=== PATIENT | male | born 1995 | race Caucasian/White ===

== ENCOUNTER 2016-09-18 13:39 | Emergency (ER) | payer OTHER ==
[2016-09-18 14:59] VITALS: BP 142/64; PULSE 72; TEMP 98.3; BMI 33.5
--- NOTE | 2016-09-18 15:04 | EDPRACDOC ---
- General Information Chief Complaint: Shoulder Pain Stated Complaint: SHOULER PAIN Time Seen by Provider: 09/18/16 14:59 Home Medications: Home Medications Cyclobenzaprine HCl [Flexeril] 10 mg PO TID PRN #20 tablet 09/18/16 Ketoprofen 50 mg PO BID PRN #20 capsule 09/18/16 Allergies/Adverse Reactions: Allergies Allergy/AdvReac Type Severity Reaction Status Date / Time No Known Allergies Allergy Verified 04/22/14 17:35 - History of Present Illness Onset: SUNDAY HPI: PT STATES HE WAS "STANDING UP SLEDDING" ON SUNDAY, FELL FORWARD ONTO RIGHT SHOULDER, COMPLAINS OF ACHING PAIN SINCE, PAIN WORSE WITH MOVEMENT, PT STATES HAS HX OF PREVIOUS SHOULDER INJURY AND WAS "SUPPOSED TO HAVE SURGERY" BUT HE DID NOT. USING IBUPROFEN WITH SOME RELIEF. Description: Reports: At Rest Location: Reports: Right, Anterior Circumstances: Reports: Blunt Trauma Relevant History: Reports: Other Tetanus Up To Date?: No Dominant Hand: Right Pain Severity: Moderate Able to Move Shoulder?: Yes Associated Signs & Symptoms: Denies: Abrasion, Swelling, Numbness, Chest pain, Neck pain, Arm pain, Elbow pain ED Past Medical History - History Reviewed Yes Nurses notes reviewed and agree except as marked No Past Medical History: Yes Patient has no past medical history - Social Medical History Smoking Status: Heavy tobacco smoker (5 or more cigarettes/day or daily pipe/ cigar) EDM Review of Systems - Review of Systems Neurological: negative: Dizziness, Numbness, Weakness Musculoskeletal: Shoulder Integumentary: No Symptoms Reported - Physical Exam Constitutional: Alert (Awake), No apparent distress Oriented to: Time, Person, Place Last recorded Vital Signs: Last Vital Signs Temp 98.3 F 09/18/16 14:58 Pulse 72 09/18/16 14:58 Resp 18 09/18/16 14:58 BP 142/64 09/18/16 14:58 Pulse Ox 100 09/18/16 14:58 Oxygen Pulse Oxygen Saturation 100 O2 Device Room Air Oxygen Flow Rate Fraction of Inspired Oxygen ( FIO2) - HEENT Head: Normal ( normocephalic) - Integumentary Skin: Normal, Warm, Dry Lymphatics: Normal (no adenopathy) - Neurologic Memory Impaired: Normal Motor Function: Normal (Normal tone, Pulses 2+ No cyanosis or edema, FROM) Cranial Nerve: Normal (CN II-X11 intact sensation, strength 5/5) Cerebellar: Normal Mood Description: Normal Perception: Normal ED Shoulder Problem Exam - Musculoskeletal Clavicle: Normal Shoulder: Limited ROM, Tender. negative: Swelling, Ecchymosis, Deformity, Dislocation Drop arm test: Negative Impingement test: Negative Arm: Normal. negative: Swelling, Deformity Distal Function/Circulation: Normal, Capillary Refill. negative: Motor Deficit , Pulse Deficit, Sensory Deficit - Differential Diagnosis Rotator cuff injury, Sprain - Diagnostic Imaging RIGHT SHOULDER Image interpreted by: Radiologist RIGHT SHOULDER - 2+ VIEW COMPARISON: None. FINDINGS: There is no evidence of fracture or dislocation. There is no evidence of arthropathy or other focal bone abnormality. Soft tissues are unremarkable. IMPRESSION: No acute osseous finding. Decision Time to Discharge: 15:53 - Departure Disposition: Home Condition: Stable Final Diagnosis: Sprain of right shoulder Qualifiers: Encounter type: initial encounter Shoulder sprain type: unspecified sprain Qualified Code(s): S43.401A - Unspecified sprain of right shoulder joint, initial encounter Instructions: RICE: Routine Care for Injuries Education/Counseling Given To: Patient Education/Counseling Given Regarding: Diagnosis, Treatment, Prognosis, Follow Up Referrals: Jared Lay MD [Staff Physician] - One Week Prescriptions: Cyclobenzaprine HCl [Flexeril] 10 mg PO TID PRN #20 tablet PRN Reason: Muscle Spasms Ketoprofen 50 mg PO BID PRN #20 capsule PRN Reason: Pain Forms: Excuse Note Additional Instructions: APPLY COLD COMPRESSES NEEDED FOR PAIN OR SWELLING. WEAR SLING NEEDED FOR COMFORT.
--- NOTE | 2016-09-18 15:49 | DIRPT ---
CLINICAL DATA: Sledding injury, right shoulder pain EXAM: RIGHT SHOULDER - 2+ VIEW COMPARISON: None. FINDINGS: There is no evidence of fracture or dislocation. There is no evidence of arthropathy or other focal bone abnormality. Soft tissues are unremarkable. IMPRESSION: No acute osseous finding. Electronically Signed By: Sanjana Booth M.D. On: 09/18/2016 15:46
== END 2016-09-18 16:07 | disposition home or self-care (01) ==
LOC: EDMC 13:39
DX: S43.401A Unspecified sprain of right shoulder joint, initial encounter (principal); W19.XXXA Unspecified fall, initial encounter
CPT/HCPCS: 99282